=== PATIENT | female | born 1940 | race Asian ===

== ENCOUNTER 2017-02-13 18:44 | Emergency (ER) | payer MEDICARE, OTHER ==
[2017-02-13] MEDS ORDERED: IPRATROPIUM/ALBUTEROL 0.5-2.5 MG/3 ML AMPUL NEB ONE (18:56)
[2017-02-13] MEDS ORDERED: PREDNISONE 20 MG TABLET PO ONE (18:56)
--- NOTE | 2017-02-13 18:56 | ER Document Report ---
ED Medical Screen (RME) - General Stated Complaint: BREATHING PROBLEM Notes: Patient is a 76-year-old female presents emergency Department complaining of shortness of breath. Patient was evaluated since Wednesday. Patient has a history of COPD and asthma medications at home. Patient states that she is taking albuterol at home and her shortness of breath resolves for about an hour. Patient says she is no longer been taking her Symbicort because she was prescribed the albuterol but was not told to stop taking Symbicort. admits to chest pain diffuse wheezing bilaterally, tachypnic I have greeted and performed a rapid initial assessment of this patient. A comprehensive ED assessment and evaluation of the patient, analysis of test results and completion of the medical decision making process will be conducted by additional ED providers. TRAVEL OUTSIDE OF THE [place] IN LAST 30 DAYS: No - Related Data Allergies/Adverse Reactions: No Known Allergies Allergy (Verified 02/13/17 18:52) Past Medical History - Past Medical History Cardiac Medical History: Reports: Hx Coronary Artery Disease, Hx Hypertension Denies: Hx Heart Attack Pulmonary Medical History: Reports: Hx Asthma Denies: Hx Bronchitis, Hx COPD, Hx Pneumonia Neurological Medical History: Denies: Hx Cerebrovascular Accident, Hx Seizures Renal/ Medical History: Denies: Hx Peritoneal Dialysis Musculoskeltal Medical History: Reports Hx Arthritis Past Surgical History: Reports: Hx Hysterectomy - Immunizations Hx Diphtheria, Pertussis, Tetanus Vaccination: No Physical Exam - Vital signs Vitals: Temp Pulse Resp BP Pulse Ox 98.2 F 98 32 H 156/95 H 96 02/13/17 18:49 02/13/17 18:49 02/13/17 18:49 02/13/17 18:49 02/13/17 18:49 Course - Vital Signs Vital signs: Temp Pulse Resp BP Pulse Ox 98.2 F 98 32 H 156/95 H 96 02/13/17 18:49 02/13/17 18:49 02/13/17 18:49 02/13/17 18:49 02/13/17 18:49
[2017-02-13] MEDS ORDERED: ALBUTEROL SULFATE 0.083% NEB 2.5 MG/3 ML AMPUL NEB SCH (19:11)
[2017-02-13] MEDS ORDERED: NORMAL SALINE 1000 ML 1,000 ML IV ONE (19:46)
[2017-02-13] MEDS ORDERED: ALBUTEROL SULFATE 0.083% NEB 2.5 MG/3 ML AMPUL NEB ONE (19:48)
--- NOTE | 2017-02-13 19:49 | ER Document Report ---
ED General - General Chief Complaint: Breathing Difficulty Stated Complaint: BREATHING PROBLEM Notes: Patient is a 76-year-old female with past medical history of asthma who was seen by me approximately 1 week ago for pyelonephritis as well as a mild asthma exacerbation. States that her flank pain and dysuria have completely resolved but she presents with concerns of shortness of breath. States the last 12 hours she has had a progressive worsening of her shortness of breath with associated wheezing and coughing. States she stopped her Spiriva after seeing me last week and was only using the albuterol inhaler. She states that this may have triggered her symptoms. Her wheezing was moderately improved by the albuterol inhaler. Exertion worsened her symptoms. She has not seen her primary care doctor regarding today's concerns. She denies any chest pain, sputum production, pleuritic pain, fever, leg swelling, or history of CHF. TRAVEL OUTSIDE OF THE [place] IN LAST 30 DAYS: No - Related Data Allergies/Adverse Reactions: No Known Allergies Allergy (Verified 02/13/17 18:52) Past Medical History - General Information source: Patient - Social History Smoking Status: Never Smoker Chew tobacco use (# tins/day): No Frequency of alcohol use: None Drug Abuse: None Lives with: Family Family History: Reviewed & Not Pertinent Patient has suicidal ideation: No Patient has homicidal ideation: No - Past Medical History Cardiac Medical History: Reports: Hx Coronary Artery Disease, Hx Hypertension Denies: Hx Heart Attack Pulmonary Medical History: Reports: Hx Asthma Denies: Hx Bronchitis, Hx COPD, Hx Pneumonia Neurological Medical History: Denies: Hx Cerebrovascular Accident, Hx Seizures Renal/ Medical History: Denies: Hx Peritoneal Dialysis Musculoskeltal Medical History: Reports Hx Arthritis Past Surgical History: Reports: Hx Hysterectomy - Immunizations Hx Diphtheria, Pertussis, Tetanus Vaccination: No Review of Systems - Review of Systems Notes: Constitutional: Negative for fever. HENT: Negative for sore throat. Eyes: Negative for visual changes. Cardiovascular: Negative for chest pain. Respiratory: Positive for shortness of breath. Gastrointestinal: Negative for abdominal pain, vomiting or diarrhea. Genitourinary: Negative for dysuria. Musculoskeletal: Negative for back pain. Skin: Negative for rash. Neurological: Negative for headaches, weakness or numbness. 10 point ROS negative except as marked above and in HPI. Physical Exam - Vital signs Vitals: Temp Pulse Resp BP Pulse Ox 98.2 F 98 32 H 156/95 H 96 02/13/17 18:49 02/13/17 18:49 02/13/17 18:49 02/13/17 18:49 02/13/17 18:49 Interpretation: Tachypneic Notes: PHYSICAL EXAMINATION: GENERAL: Appears to be in moderate respiratory distress. HEAD: Atraumatic, normocephalic. EYES: Pupils equal round and reactive to light, extraocular movements intact, sclera anicteric, conjunctiva are normal. ENT: nares patent, oropharynx clear without exudates. Moderately dry mucous membranes. NECK: Normal range of motion, supple without lymphadenopathy LUNGS: Diminished air movement in all lung kuo with prolonged expiratory wheezing. Moderate respiratory distress HEART: Regular rate and rhythm without murmurs ABDOMEN: Soft, nontender, normoactive bowel sounds. No guarding, no rebound. No masses appreciated. EXTREMITIES: Normal range of motion, no pitting or edema. No cyanosis. NEUROLOGICAL: No focal neurological deficits. Moves all extremities spontaneously and on command. PSYCH: Normal mood, normal affect. SKIN: Warm, Dry, normal turgor, no rashes or lesions noted. Course - Re-evaluation Re-evalutation: 02/13/17 19:48 Patient arrives in moderate respiratory distress with tachypnea with respiratory rate initially 32 breaths per minute. She had some mild intercostal retractions which started to improve after initiation of a DuoNeb. Patient has diffuse, coarse wheezing in all lung kuo with prolonged expiratory phase and moderately diminished air movement. She has been started on continuous be a nebulizers. An IV will be established an IV fluids and IV magnesium will be initiated. She has already received steroids in triage. She will require frequent reassessments due to her respiratory distress. Of note, contrary to triage assessment note, patient denies any chest pain and her clinical presentation is not consistent with an acute pulmonary embolus, ACS, spontaneous pneumothorax. Therefore will not pursue a workup for ACS including cardiac markers as this is not indicated based on her presentation of diffuse wheezing. 02/13/17 21:21 On reassessment, patient's work of breathing is much improved now with an even, unlabored respiration. Faint end expiratory wheezing at this point but much improved air movement. Continuing on continuous nebulizers at this time. Will reassess frequently 02/13/17 23:47 On multiple reassessments, patient is continued without respiratory distress. Saturating 98% on room air, mild tachycardia likely secondary to the large about of albuterol the patient as received. Her urinalysis does show clearance of her prior pyelonephritis. Will ambulate the patient and if she does this without difficulty she can be discharged on steroids with return precautions and follow-up recommendations. 02/14/17 00:16 Patient has ambulate without hypoxemia or tachypnea. She remains well-appearing , vitals show only mild tachycardia which again I suspect is secondary to the albuterol patient has received as she was not tachycardic at time of arrival. She was started on a five-day course of steroids.At this time will discharge with return precautions and follow-up recommendations. Verbal discharge instructions given a the bedside and opportunity for questions given. Medication warnings reviewed. Patient is in agreement with this plan and has verbalized understanding of return precautions and the need for primary care follow-up in the next 24-72 hours. - Vital Signs Vital signs: Temp Pulse Resp BP Pulse Ox 98.2 F 98 18 133/63 H 95 02/13/17 18:49 02/13/17 18:49 02/13/17 22:01 02/13/17 22:00 02/13/17 22:01 - Laboratory Result Diagrams: 02/13/17 19:50 02/13/17 19:50 Laboratory results interpreted by me: 02/13/17 02/13/17 19:45 19:50 Glucose 114 H Urine Glucose (UA) 50 H - Diagnostic Test Radiology reviewed: Image reviewed, Reports reviewed Radiology results interpreted by me: 02/13/17 21:21 Chest x-ray: No acute infiltrate - EKG Interpretation by Me Additional EKG results interpreted by me: 02/13/17 21:22 Normal sinus rhythm. Rate 89. No ST elevations or depressions. QTC is 468. Critical Care Note - Critical Care Note Total time excluding time spent on procedures (mins): 36 Comments: Critical care time spent obtaining history from patient or surrogate, development of treatment plan with patient or surrogate, evaluation of patient' s response to treatment, examination of patient, ordering and performing treatments and interventions, ordering and review of laboratory studies, re- evaluation of patient's condition, ordering and review of radiographic studies and review of old charts Discharge - Discharge Clinical Impression: Asthma exacerbation, Respiratory distress Condition: Good Disposition: HOME, SELF-CARE Additional Instructions: You were seen for an asthma exacerbation. Your symptoms improved with treatment here in the emergency department. However, it is very important that you return to the emergency department immediately if you began to have worsening difficulty breathing that does not respond to your normal home nebulizers. You are also being sent home on a five-day course of steroids that you should start taking tomorrow. Please also follow closely with your primary care physician. you should also return to emergency department if you develop fever greater than 101, persistent cough, persistent vomiting, pass out, or any other symptoms that are concerning to you. Prescriptions: Prednisone [Deltasone 20 mg Tablet] 3 tab PO DAILY 5 Days Referrals: TOSHA ALEJO MD [Primary Care Provider] - Follow up tomorrow
[2017-02-13] MEDS: MAGNESIUM SULFATE/D5W 100 ML IV SCH ×2 (20:01→20:54)
[2017-02-13 20:11] LABS: ABSOLUTE EOSINOPHILS # (AUTO) 0.4 10^3/uL (0.0-0.6); ABSOLUTE LYMPHOCYTES (AUTO) 1.6 10^3/uL (0.5-4.7); ABSOLUTE MONOCYTES (AUTO) 0.6 10^3/uL (0.1-1.4); ABSOLUTE NEUT (AUTO) 3.8 10^3/uL (1.7-8.2); BASOPHILS % (AUTO) 0.4 % (0-2); EOSINOPHILS % (AUTO) 5.9 % (0-6); HEMATOCRIT 39.7 % (36.0-47.0); HEMOGLOBIN 13.5 g/dL (12.0-15.5); HGB HCT DIFFERENCE 0.8; LYMPHOCYTES % (AUTO) 25.7 % (13-45); MEAN CORPUSCULAR VOLUME 91 fl (80-97); MONOCYTES % (AUTO) 9.2 % (3-13); RED BLOOD COUNT 4.34 10^6/uL (3.72-5.28); RED CELL DISTRIBUTION WIDTH 12.9 % (11.5-14.0); SEGMENTED NEUTROPHILS % (AUTO) 58.8 % (42-78); WHITE BLOOD COUNT 6.4 10^3/uL (4.0-10.5)
[2017-02-13 20:23] LABS: ANION GAP 12 (5-19); BLOOD UREA NITROGEN 14 mg/dL (7-20); CALCIUM 9.6 mg/dL (8.4-10.2); CARBON DIOXIDE 26 mmol/L (22-30); CHLORIDE 101 mmol/L (98-107); GLUCOSE 114 mg/dL (75-110); POTASSIUM 4.5 mmol/L (3.6-5.0); SODIUM 139.3 mmol/L (137-145)
--- NOTE | 2017-02-13 20:34 | EKG REPORT ---
SEVERITY:- BORDERLINE ECG - SINUS RHYTHM PROBABLE LEFT ATRIAL ABNORMALITY : Confirmed by: Simran Vega MD 13-Feb-2017 20:33:52
[2017-02-13 21:20] LABS: APPEARANCE,URINE CLEAR; BILIRUBIN,URINE NEGATIVE (NEGATIVE); GLUCOSE, URINE 50 mg/dL (NEGATIVE); KETONES,URINE NEGATIVE (NEGATIVE); LEUKOCYTE ESTERASE,URINE NEGATIVE (NEGATIVE); NITRITE,URINE NEGATIVE (NEGATIVE); PROTEIN,URINE NEGATIVE (NEGATIVE); URINE SPECIFIC GRAVITY 1.004; UROBILINOGEN,URINE NEGATIVE mg/dL (<2.0)
[2017-02-14 01:40] VITALS: BP 117/59
== END 2017-02-14 01:13 | disposition home or self-care (01) ==
LOC: ER 18:44
DX: J45.901 Unspecified asthma with (acute) exacerbation (principal); R06.00 Dyspnea, unspecified; R06.02 Shortness of breath; R10.9 Unspecified abdominal pain; R30.0 Dysuria
CPT/HCPCS: 93005; 94640 ×2; 99291; 96361; 96374; 36415; 87086; 85025; 80048; 81001; 71010; 93010; J3475; A9270 ×3; J7030; J7512; J7620

== ENCOUNTER 2018-08-29 09:39 | Emergency (ER) | payer MEDICARE ==
[2018-08-29] MEDS ORDERED: IPRATROPIUM/ALBUTEROL 0.5-2.5 MG/3 ML AMPUL NEB ONE (09:54)
--- NOTE | 2018-08-29 09:56 | ER Document Report ---
ED Medical Screen (RME) - General Chief Complaint: Shortness Of Breath Stated Complaint: SHORT OF BREATH Time Seen by Provider: 08/29/18 09:46 Mode of Arrival: Ambulatory Information source: Patient, Relative, [facility] Records Notes: 78-year-old female with hypertension, coronary artery disease, asthma presents with complaint of shortness of breath, productive cough. Patient has been on prednisone and Ceftin without relief of symptoms. I have greeted and performed a rapid initial assessment of this patient. A comprehensive ED assessment and evaluation of the patient, analysis of test results and completion of medical decision making process we will be contacted by additional ED providers. PHYSICAL EXAMINATION: GENERAL: Well-appearing, well-nourished and in no acute distress. LUNGS: No respiratory distress, expiratory wheezing, coarse breath sounds in the right lower lung field Musculoskeletal: Normal range of motion NEUROLOGICAL: Normal speech, normal gait. PSYCH: Normal mood, normal affect. SKIN: Warm, Dry, normal turgor, no rashes or lesions noted. TRAVEL OUTSIDE OF THE [place] IN LAST 30 DAYS: No - HPI Onset: Last week Onset/Duration: Gradual, Persistent, Worse Quality of pain: Achy Severity: Mild Associated Symptoms: Cough (productive), Shortness of breath Exacerbated by: Walking, Coughing Relieved by: Denies Similar symptoms previously: Yes Recently seen / treated by doctor: Yes - Dr. Julien - Related Data Smoking: Non-smoker Frequency of alcohol use: Occasional Drug Abuse: None Allergies/Adverse Reactions: No Known Allergies Allergy (Verified 08/29/18 09:44) Past Medical History - Social History Chew tobacco use (# tins/day): No Frequency of alcohol use: None Drug Abuse: None - Past Medical History Cardiac Medical History: Reports: Hx Coronary Artery Disease, Hx Hypertension Denies: Hx Heart Attack Pulmonary Medical History: Reports: Hx Asthma, Hx COPD Denies: Hx Bronchitis, Hx Pneumonia Neurological Medical History: Denies: Hx Cerebrovascular Accident, Hx Seizures Renal/ Medical History: Denies: Hx Peritoneal Dialysis Musculoskeltal Medical History: Reports Hx Arthritis Past Surgical History: Reports: Hx Hysterectomy - Immunizations Hx Diphtheria, Pertussis, Tetanus Vaccination: No Physical Exam - Vital signs Vitals: Temp Pulse Resp BP Pulse Ox 97.7 F 74 16 155/83 H 96 08/29/18 09:47 08/29/18 09:47 08/29/18 09:47 08/29/18 09:47 08/29/18 09:47 Course - Vital Signs Vital signs: Temp Pulse Resp BP Pulse Ox 97.7 F 74 16 155/83 H 96 08/29/18 09:47 08/29/18 09:47 08/29/18 09:47 08/29/18 09:47 08/29/18 09:47
[2018-08-29] MEDS ORDERED: ALBUTEROL SULFATE 0.083% NEB 2.5 MG/3 ML AMPUL NEB ONE (09:57)
[2018-08-29] MEDS ORDERED: GUAIFENESIN/CODEINE PHOS 100-10 MG/ 5 ML UDC PO ONE (09:57)
[2018-08-29 10:28] LABS: VENOUS BLOOD BASE EXCESS 1.2 mmol/L; VENOUS BLOOD PCO2 42.4 mmHg (35-63); VENOUS BLOOD PH 7.41 (7.30-7.42)
[2018-08-29 10:29] LABS: ABSOLUTE EOSINOPHILS # (AUTO) 0.1 10^3/uL (0.0-0.6); ABSOLUTE LYMPHOCYTES (AUTO) 1.5 10^3/uL (0.5-4.7); ABSOLUTE MONOCYTES (AUTO) 0.7 10^3/uL (0.1-1.4); ABSOLUTE NEUT (AUTO) 5.1 10^3/uL (1.7-8.2); BASOPHILS % (AUTO) 0.3 % (0-2); EOSINOPHILS % (AUTO) 1.1 % (0-6); HEMATOCRIT 37.7 % (36.0-47.0); HEMOGLOBIN 12.8 g/dL (12.0-15.5); LYMPHOCYTES % (AUTO) 19.7 % (13-45); MEAN CORPUSCULAR HEMOGLOBIN 31.4 pg (27.0-33.4); MEAN CORPUSCULAR HGB CONC 33.9 g/dL (32.0-36.0); MEAN CORPUSCULAR VOLUME 93 fl (80-97); PLATELET COUNT 288 10^3/uL (150-450); RED BLOOD COUNT 4.07 10^6/uL (3.72-5.28); RED CELL DISTRIBUTION WIDTH 13.2 % (11.5-14.0); SEGMENTED NEUTROPHILS % (AUTO) 68.9 % (42-78); TOTAL CELLS COUNTED % (AUTO) 100 %; WHITE BLOOD COUNT 7.5 10^3/uL (4.0-10.5)
[2018-08-29 10:46] LABS: ALANINE AMINOTRANSFERASE 29 U/L (9-52); ALBUMIN 4.2 g/dL (3.5-5.0); ALKALINE PHOSPHATASE 80 U/L (38-126); ANION GAP 8 (5-19); ASPARTATE AMINO TRANSFERASE 27 U/L (14-36); BILIRUBIN,DIRECT 0.3 mg/dL (0.0-0.4); BILIRUBIN,TOTAL 1.1 mg/dL (0.2-1.3); BLOOD UREA NITROGEN 14 mg/dL (7-20); CARBON DIOXIDE 30 mmol/L (22-30); CHLORIDE 102 mmol/L (98-107); GLUCOSE 122 mg/dL (75-110); POTASSIUM 3.9 mmol/L (3.6-5.0); SODIUM 140.1 mmol/L (137-145); TOTAL PROTEIN 7.3 g/dL (6.3-8.2)
--- NOTE | 2018-08-29 10:47 | RADIOLOGY REPORT (SQ) ---
EXAM DESCRIPTION: CHEST 2 VIEWS COMPLETED DATE/TIME: 08/29/2018 10:33 am REASON FOR STUDY: sob COMPARISON: 02/09/2017 EXAM PARAMETERS: NUMBER OF VIEWS: two views TECHNIQUE: Digital Frontal and Lateral radiographic views of the chest acquired. RADIATION DOSE: NA LIMITATIONS: none FINDINGS: LUNGS AND PLEURA: Mild hyperinflation of the lungs with some flattening of the diaphragms . No acute pulmonary findings. No pneumothorax or pleural effusion. MEDIASTINUM AND HILAR STRUCTURES: No masses or contour abnormalities. HEART AND VASCULAR STRUCTURES: Heart normal size. No evidence for failure. BONES: No acute findings. HARDWARE: None in the chest. OTHER: No other significant finding. IMPRESSION: 1. No significant interval changes since the prior study dated 02/09/2017. No acute fin dings. TECHNICAL DOCUMENTATION: JOB ID: [id number] [employer]- All Rights Reserved Reading location - IP/workstation name: [email or web address]
--- NOTE | 2018-08-29 11:00 | ER Document Report ---
ED General - General Chief Complaint: Shortness Of Breath Stated Complaint: SHORT OF BREATH Time Seen by Provider: 08/29/18 09:46 Mode of Arrival: Ambulatory TRAVEL OUTSIDE OF THE [place] IN LAST 30 DAYS: No - HPI Notes: Patient is a 78-year-old female that presents to the emergency department for chief complaint of shortness of breath and insomnia. Patient reports history of insomnia. She has been taking Ativan for years and states it was not working for her. Her primary care provider switched her from Ativan to Restoril 4 days ago and she reports no improvement of her sleeping. She also complains of shortness of breath and asthma exacerbation for the last week. 4 days ago she was started on a prednisone taper which is almost complete. She was also started on Ceftin and has been using her home albuterol every 6 hours. She states that her shortness of breath is unchanged. She denies any worsening of her shortness of breath, fevers or coughing. She does state that the shortness of breath is worse with exertion. She denies any chest pain and lightheadedness. Past Medical History: Insomnia, asthma Past Surgical History: Negative Social History: Denies drugs alcohol and tobacco Family History: Reviewed and noncontributory for presenting illness Allergies: Reviewed, see documented allergy list. REVIEW OF SYSTEMS: CONSTITUTIONAL : Insomnia No fever No chills No diaphoresis No recent illness EENT: No vision changes No congestion No sore throat CARDIOVASCULAR: No chest pain No palpitations RESPIRATORY: shortness of breath No cough No difficulty breathing GASTROINTESTINAL: No abdominal pain No nausea No vomiting No diarrhea GENITOURINARY: No dysuria No hematuria No difficulty urinating MUSCULOSKELETAL: No back pain No leg pain No arm pain SKIN: No rashes No lesions LYMPHATIC: No swollen, enlarged glands. NEUROLOGICAL: No lightheadedness No headache No weakness No paresthesias PSYCHIATRIC: No anxiety No depression PHYSICAL EXAMINATION: Vital signs reviewed, nursing noted reviewed. GENERAL: Well-appearing, well-nourished and in no acute distress. HEAD: Atraumatic, normocephalic. EYES: Eyes appear normal, extraocular movements intact, sclera anicteric, conjunctiva are normal. ENT: nares patent, oropharynx clear without exudates. Moist mucous membranes. NECK: Normal range of motion, supple without lymphadenopathy LUNGS: lung sounds wheezy bilaterally, symmetric. No accessory muscle use or tachypnea. Speaking in full sentences. No respiratory distress. HEART: Regular rate and rhythm without murmurs ABDOMEN: Soft, nontender, normoactive bowel sounds. No rebound, guarding, or rigidity. No masses appreciated. EXTREMITIES: Nontender, good range of motion, no pitting or edema. NEUROLOGICAL: No focal neurological deficits. Moves all extremities spontaneously Motor and sensory grossly intact on exam. PSYCH: Normal mood, normal affect. SKIN: Warm, Dry, normal turgor, no rashes or lesions noted on exposed skin - Related Data Allergies/Adverse Reactions: No Known Allergies Allergy (Verified 08/29/18 09:44) Past Medical History - General Information source: Patient, Relative, [facility] Records - Social History Smoking Status: Former Smoker Chew tobacco use (# tins/day): No Frequency of alcohol use: None Drug Abuse: None Family History: Reviewed & Not Pertinent Patient has suicidal ideation: No Patient has homicidal ideation: No - Past Medical History Cardiac Medical History: Reports: Hx Coronary Artery Disease, Hx Hypertension Denies: Hx Heart Attack Pulmonary Medical History: Reports: Hx Asthma, Hx COPD Denies: Hx Bronchitis, Hx Pneumonia Neurological Medical History: Denies: Hx Cerebrovascular Accident, Hx Seizures Renal/ Medical History: Denies: Hx Peritoneal Dialysis Musculoskeletal Medical History: Reports Hx Arthritis Past Surgical History: Reports: Hx Hysterectomy - Immunizations Hx Diphtheria, Pertussis, Tetanus Vaccination: No Review of Systems - Review of Systems Notes: Dictated Physical Exam - Vital signs Vitals: Temp Pulse Resp BP Pulse Ox 97.7 F 74 16 155/83 H 96 08/29/18 09:47 08/29/18 09:47 08/29/18 09:47 08/29/18 09:47 08/29/18 09:47 - Notes Notes: Dictated Course - Re-evaluation Re-evalutation: 08/29/18 11:00 Vitals reviewed. Nursing notes reviewed. Patient received albuterol and DuoNeb in the emergency room 08/29/18 11:06 Patient reevaluated and is still hemodynamically stable and feeling much better. She was ambulated in the emergency room and did not become lightheaded or dyspneic. Her oxygen saturation remained at 99%. Patients x-ray shows no acute pneumonia. Lab work is unremarkable. She was encouraged to use her nebulizer inhaler every 4 hours and will be placed on a prolonged course of steroids. Patient will finish her Ceftin. She will see her primary care doctor for follow-up in 1-2 days. She will return for new or worsening symptoms. Discharged home in stable condition. Laboratory 08/29/18 08/29/18 08/29/18 10:06 10:06 10:06 WBC 7.5 RBC 4.07 Hgb 12.8 Hct 37.7 MCV 93 MCH 31.4 MCHC 33.9 RDW 13.2 Plt Count 288 Seg Neutrophils % 68.9 Lymphocytes % 19.7 Monocytes % 10.0 Eosinophils % 1.1 Basophils % 0.3 Absolute Neutrophils 5.1 Absolute Lymphocytes 1.5 Absolute Monocytes 0.7 Absolute Eosinophils 0.1 Absolute Basophils 0.0 VBG pH 7.41 VBG pCO2 42.4 VBG HCO3 26.0 VBG Base Excess 1.2 Sodium 140.1 Potassium 3.9 Chloride 102 Carbon Dioxide 30 Anion Gap 8 BUN 14 Creatinine 0.59 Est GFR ( Amer) > 60 Est GFR (Non-Af Amer) > 60 Glucose 122 H Calcium 9.0 Total Bilirubin 1.1 Direct Bilirubin 0.3 Neonat Total Bilirubin Not Reportable Neonat Direct Bilirubin Not Reportable Neonat Indirect Bili Not Reportable AST 27 ALT 29 Alkaline Phosphatase 80 Total Protein 7.3 Albumin 4.2 Chest X-Ray 08/29/18 09:49 IMPRESSION: 1. No significant interval changes since the prior study dated . No acute findings. - Vital Signs Vital signs: Temp Pulse Resp BP Pulse Ox 97.7 F 74 16 155/83 H 96 08/29/18 09:47 08/29/18 09:47 08/29/18 09:47 08/29/18 09:47 08/29/18 09:47 - Laboratory Result Diagrams: 08/29/18 10:06 08/29/18 10:06 Laboratory results interpreted by me: 08/29/18 10:06 Glucose 122 H Discharge - Discharge Clinical Impression: Asthma exacerbation Qualifiers: Asthma severity: moderate Asthma persistence: persistent Qualified Code(s): J45.41 - Moderate persistent asthma with (acute) exacerbation Insomnia Qualifiers: Insomnia type: unspecified Qualified Code(s): G47.00 - Insomnia, unspecified Condition: Stable Disposition: HOME, SELF-CARE Instructions: Asthma ([facility]), Insomnia ([facility]) Additional Instructions: Please return to the emergency department if you have any worsening, or concern of your symptoms. Please return to the emergency department if you develop chest pain, difficulty breathing, severe abdominal pain, or ongoing vomiting. Please follow-up with your primary care physician in 2-3 days and any other recommended physicians. If prescribed, take all medications as directed. If you have any questions or concerns do not hesitate to return the emergency department for evaluation. Use your albuterol nebulizer at home every 4 hours as needed for shortness of breath. Stop taking the prednisone as previously prescribed. Begin taking the new higher dose of prednisone today. Continue taking the Ceftin antibiotic until that is finished. Follow with your primary care doctor to discuss changes in your Spiriva and Brio as well as Restoril. Prescriptions: Prednisone [Deltasone 20 mg Tablet] See Protocol PO DAILY #20 tablet Referrals: TOSHA ALEJO MD [EMERITUS] - Follow up in 3-5 days
[2018-08-29 11:32] VITALS: BP 171/85
== END 2018-08-29 11:32 | disposition home or self-care (01) ==
LOC: ER 09:39
DX: J45.41 Moderate persistent asthma with (acute) exacerbation (principal); G47.00 Insomnia, unspecified; J44.9 Chronic obstructive pulmonary disease, unspecified; R06.02 Shortness of breath; I25.10 Atherosclerotic heart disease of native coronary artery without angina pectoris; I10 Essential (primary) hypertension; Z79.899 Other long term (current) drug therapy; Z87.891 Personal history of nicotine dependence
CPT/HCPCS: 94640 ×2; 99285; 36415; 85025; 80053; 82803; 71046; A9270 ×3; J7620